=== PATIENT | female | born 1960 | race Two or more races ===

== ENCOUNTER 2017-07-01 08:52 | Outpatient (CLI) | payer OTHER | END 2017-07-01 12:25 | disposition home or self-care (01) | LOC: MRI 08:52 | DX: M51.36 Other intervertebral disc degeneration, lumbar region (principal) | CPT/HCPCS: 72148 ==

== ENCOUNTER 2017-07-01 09:12 | Outpatient (CLI) | payer OTHER | END 2017-07-01 12:25 | disposition home or self-care (01) | LOC: MAMO-SONO 09:12 | DX: R10.2 Pelvic and perineal pain (principal); N60.11 Diffuse cystic mastopathy of right breast; N60.12 Diffuse cystic mastopathy of left breast; Z12.31 Encounter for screening mammogram for malignant neoplasm of breast ==

== ENCOUNTER → 2017-08-26 | Emergency (ER) | payer OTHER ==
[~2017-08-26] VITALS: Ht 172.7 cm; Wt 108.9 kg
[~2017-08-26] MED LIST: COZAAR25 MG; KETO10TA2 PO
== END | disposition home or self-care (01) ==
LOC: ER 20:39
DX: S80.01XA Contusion of right knee, initial encounter (principal); W18.39XA Other fall on same level, initial encounter; Y93.01 Activity, walking, marching and hiking; Y92.512 Supermarket, store or market as the place of occurrence of the external cause; Y99.8 Other external cause status

== ENCOUNTER 2017-09-16 08:58 | Day surgery (SDC) | payer OTHER ==
[~2017-09-16 08:58] MED LIST changes: +LAMICTAL100 M1 PO; +OMEGA 3-6-9 11200 M1 PO; +VITAMIN D5000 UNIT PO
== END 2017-09-16 15:50 | disposition home or self-care (01) ==
LOC: CIR.AMB 08:58
DX: N95.0 Postmenopausal bleeding (principal); N84.0 Polyp of corpus uteri

== ENCOUNTER 2020-02-28 16:48 | Outpatient (CLI) | payer OTHER | END 2020-02-28 16:58 | disposition home or self-care (01) | LOC: RAD 16:48 | PROVIDERS: ATTEND Orthopaedic Surgery | DX: M25.572 Pain in left ankle and joints of left foot (principal) ==

== ENCOUNTER 2020-03-25 09:51 | Outpatient (CLI) | payer OTHER | END 2020-03-25 10:02 | disposition home or self-care (01) | LOC: MAMO-SONO 09:51 → SONOGRAMA 10:15 → MAMO-SONO 10:45 | PROVIDERS: ATTEND Obstetrics & Gynecology | DX: D24.1 Benign neoplasm of right breast (principal); D24.2 Benign neoplasm of left breast; Z12.31 Encounter for screening mammogram for malignant neoplasm of breast; R10.2 Pelvic and perineal pain; M17.12 Unilateral primary osteoarthritis, left knee; M25.762 Osteophyte, left knee ==

== ENCOUNTER → 2020-03-25 | Outpatient (CLI) | payer OTHER | END | disposition home or self-care (01) | LOC: NUCLEAR 11:00 | PROVIDERS: ATTEND Orthopaedic Surgery | DX: M81.0 Age-related osteoporosis without current pathological fracture (principal) ==

== ENCOUNTER 2020-04-15 13:17 | Outpatient (CLI) | payer OTHER | END 2020-04-15 13:26 | disposition HB | LOC: RAD 13:17 | PROVIDERS: ATTEND Orthopaedic Surgery | DX: M79.652 Pain in left thigh (principal); M79.605 Pain in left leg; Z76.89 Persons encountering health services in other specified circumstances ==

== ENCOUNTER → 2020-06-04 14:15 | Outpatient (CLI) | payer OTHER | END | disposition home or self-care (01) | LOC: EKG 14:15 | PROVIDERS: ATTEND Specialist | DX: Z20.810 Contact with and (suspected) exposure to anthrax (principal); I10 Essential (primary) hypertension ==

== ENCOUNTER 2021-02-25 08:20 | Outpatient (CLI) | payer OTHER | END 2021-02-25 08:34 | disposition home or self-care (01) | LOC: MRI 08:20 | PROVIDERS: ATTEND Specialist | DX: C54.1 Malignant neoplasm of endometrium (principal) | CPT/HCPCS: 72197 ==

== ENCOUNTER 2021-03-06 08:48 | Outpatient (CLI) | payer OTHER | END 2021-03-06 08:59 | disposition home or self-care (01) | LOC: SONOGRAMA 08:48 → MAMO-SONO 09:15 | PROVIDERS: ATTEND Specialist | DX: K76.0 Fatty (change of) liver, not elsewhere classified (principal) ==

== ENCOUNTER → 2021-03-30 09:55 | Outpatient (CLI) | payer OTHER ==
[~2021-03-30 09:55] MED LIST changes: +LEXAPRO5 MG PO; +LOSARTAN POTASS25 MG PO; +LYRICA150 MG PO; +ONE-DAILY MULT1 EAC1 PO; +WELBUTRIN PO; +WELLBUTRIN SR150 MG PO
== END | disposition home or self-care (01) ==
LOC: EDBD 09:55 → LAB 09:55
PROVIDERS: ATTEND Specialist
DX: D68.8 Other specified coagulation defects (principal); N39.0 Urinary tract infection, site not specified; I10 Essential (primary) hypertension; D69.49 Other primary thrombocytopenia; D69.3 Immune thrombocytopenic purpura; K76.89 Other specified diseases of liver; I27.89 Other specified pulmonary heart diseases

== ENCOUNTER 2021-04-01 08:25 | Inpatient (IN) | payer OTHER ==
[~2021-04-01] VITALS: Ht 172.7 cm; Wt 99.8 kg
[~2021-04-01 08:25] MED LIST changes: -LEXAPRO5 MG PO; -LOSARTAN POTASS25 MG PO; -LYRICA150 MG PO; -ONE-DAILY MULT1 EAC1 PO; -WELBUTRIN PO; -WELLBUTRIN SR150 MG PO
[2021-04-01] MEDS ORDERED: WELBUTRIN PO (08:51)
[2021-04-01] MEDS ORDERED: LEXAPRO5 MG PO (08:51)
[2021-04-01] MEDS ORDERED: LOSARTAN POTASS25 MG PO (08:52)
[2021-04-01] MEDS ORDERED: LYRICA150 MG PO (08:52)
[2021-04-01] MEDS ORDERED: ONE-DAILY MULT1 EAC1 PO (08:53)
[2021-04-02] MEDS ORDERED: WELLBUTRIN SR150 MG PO (11:33)
== END 2021-04-05 13:10 | disposition home or self-care (01) | DRG 741 ==
LOC: EDBD → O/R 04-02 05:40 → SURH 04-02 07:00 → OB/GYN 04-02 18:36
PROVIDERS: ADMIT Specialist; ATTEND Specialist
PROC: 0UT20ZZ Resection of Bilateral Ovaries, Open Approach (ICD-10-PCS; 2021-04-02)
PROC: 0UT70ZZ Resection of Bilateral Fallopian Tubes, Open Approach (ICD-10-PCS; 2021-04-02)
PROC: 07BC0ZZ Excision of Pelvis Lymphatic, Open Approach (ICD-10-PCS; 2021-04-02)
PROC: 0UT90ZZ Resection of Uterus, Open Approach (ICD-10-PCS; principal; 2021-04-02 07:00)
DX: C54.1 Malignant neoplasm of endometrium (principal); D25.1 Intramural leiomyoma of uterus; D25.2 Subserosal leiomyoma of uterus; N84.0 Polyp of corpus uteri; N83.292 Other ovarian cyst, left side; N83.291 Other ovarian cyst, right side; E66.01 Morbid (severe) obesity due to excess calories; N95.0 Postmenopausal bleeding; F41.8 Other specified anxiety disorders; I10 Essential (primary) hypertension

== ENCOUNTER 2021-06-02 07:49 | Outpatient (CLI) | payer OTHER ==
[~2021-06-02 07:49] MED LIST changes: +LEXAPRO5 MG PO; +LOSARTAN POTASS25 MG PO; +LYRICA150 MG PO; +ONE-DAILY MULT1 EAC1 PO; +WELBUTRIN PO; +WELLBUTRIN SR150 MG PO
== END 2021-06-02 08:02 | disposition home or self-care (01) ==
LOC: RAD 07:49
PROVIDERS: ATTEND Neuromusculoskeletal Medicine & OMM
DX: R41.3 Other amnesia (principal); G40.909 Epilepsy, unspecified, not intractable, without status epilepticus; M51.26 Other intervertebral disc displacement, lumbar region; M51.36 Other intervertebral disc degeneration, lumbar region; N63.20 Unspecified lump in the left breast, unspecified quadrant
CPT/HCPCS: 70553; 72148

== ENCOUNTER 2021-06-02 08:08 | Outpatient (CLI) | payer OTHER | END 2021-06-02 08:20 | disposition home or self-care (01) | LOC: LAB 08:08 | PROVIDERS: ATTEND Radiology Diagnostic Radiology | DX: N18.9 Chronic kidney disease, unspecified (principal) ==

== ENCOUNTER 2022-04-22 12:10 | Outpatient (CLI) | payer OTHER | END 2022-04-22 12:29 | disposition home or self-care (01) | LOC: SONOGRAMA 12:10 | PROVIDERS: ATTEND Obstetrics & Gynecology | DX: R10.2 Pelvic and perineal pain (principal) ==

== ENCOUNTER 2022-07-23 09:57 | Outpatient (CLI) | payer OTHER | END 2022-07-23 10:15 | disposition home or self-care (01) | LOC: MAMO-SONO 09:57 | DX: N60.11 Diffuse cystic mastopathy of right breast (principal); N60.12 Diffuse cystic mastopathy of left breast ==

== ENCOUNTER 2023-03-18 10:37 | Outpatient (CLI) | payer OTHER | END 2023-03-18 10:42 | disposition home or self-care (01) | LOC: SONOGRAMA 10:37 | PROVIDERS: ATTEND Obstetrics & Gynecology | DX: N63.21 Unspecified lump in the left breast, upper outer quadrant (principal); Z88.0 Allergy status to penicillin; Z91.018 Allergy to other foods ==

== ENCOUNTER 2024-04-23 09:26 | Outpatient (CLI) | payer OTHER | END 2024-04-23 09:36 | disposition home or self-care (01) | LOC: MAMO-SONO 09:26 | PROVIDERS: ATTEND Obstetrics & Gynecology | DX: K76.0 Fatty (change of) liver, not elsewhere classified (principal); N63.22 Unspecified lump in the left breast, upper inner quadrant; N63.10 Unspecified lump in the right breast, unspecified quadrant ==

== ENCOUNTER 2024-07-05 08:27 | Outpatient (CLI) | payer OTHER | END 2024-07-05 08:39 | disposition home or self-care (01) | LOC: MRI 08:27 | PROVIDERS: ATTEND Orthopaedic Surgery | DX: M25.561 Pain in right knee (principal); M25.562 Pain in left knee; M23.331 Other meniscus derangements, other medial meniscus, right knee | CPT/HCPCS: 73721 ==

== ENCOUNTER 2024-09-28 10:53 | Outpatient (CLI) | payer OTHER | END 2024-09-28 10:54 | disposition home or self-care (01) | LOC: NUCLEAR 10:53 | PROVIDERS: ATTEND Internal Medicine Gastroenterology | DX: K76.0 Fatty (change of) liver, not elsewhere classified (principal); R16.0 Hepatomegaly, not elsewhere classified ==

== ENCOUNTER 2025-05-13 11:17 | Outpatient (CLI) | payer OTHER | END 2025-05-13 11:20 | disposition home or self-care (01) | LOC: MAMO-SONO 11:17 | PROVIDERS: ATTEND Obstetrics & Gynecology | DX: R10.23 Pelvic and perineal pain bilateral (principal); N63.22 Unspecified lump in the left breast, upper inner quadrant; N63.0 Unspecified lump in unspecified breast ==